=== PATIENT | female | born 1995 | race Caucasian/White ===

== ENCOUNTER 2017-10-09 15:31 | Emergency (ER) | payer OTHER ==
[~2017-10-09] VITALS: Ht 172.7 cm; Wt 66.0 kg
[2017-10-09 15:40] VITALS: Ht 172.7 cm; Wt 66.0 kg
[2017-10-09] MEDS ORDERED: FLV1 PO (16:22)
[2017-10-09] MEDS ORDERED: LEVE500T13 PO (16:22)
[2017-10-09] MEDS ORDERED: KPP/1000 PO (16:22)
--- NOTE | 2017-10-09 16:25 | DIAGNOSTIC IMAGING REPORT ---
CHEST 2 VIEWS ROUTINE CLINICAL HISTORY: 22 years-old Female presenting with cough for 2 weeks, chest pain. TECHNIQUE: PA and lateral views of the chest were obtained. COMPARISON: None. FINDINGS: Cardiomediastinal silhouette normal. Lungs and pleural spaces clear. Osseous structures normal. Upper abdomen normal. IMPRESSION: 1. No acute cardiopulmonary disease. Electronically signed by: Timothy Nath M.D. 10/09/2017 4:24 PM Dictated Date/Time: 10/09/2017 4:23 PM
--- NOTE | 2017-10-09 16:51 | EMERGENCY ROOM VISIT NOTE ---
ED Visit Note First contact with patient: 15:46 CHIEF COMPLAINT: Cough and bilateral rib pain HISTORY OF PRESENT ILLNESS: This 22-year-old female presents to the ER with chief complaint of cough and bilateral rib pain. The patient states that she has been coughing for about 1 week. She states the cough has been productive. The patient also admits to some head congestion but denies any ear pain, sore throat or fever. The patient denies any body aches. The patient states today after she was eating she got pain in both her lower ribs with increased pain with inspiration or movement. REVIEW OF SYSTEMS: 6 system review was performed and was negative unless stated otherwise in history of present illness. PMH: The patient is healthy; there is no significant medical or surgical history. SOCIAL HISTORY: Patient lives at home. The patient denies any tobacco use. PHYSICAL EXAM: Vital Signs were reviewed: Reviewed Nurse's notes and agree. Oxygen saturation is 97 % on room air which is normal . GENERAL: 22-year-old female appears in no acute distress. MENTAL STATUS: Alert, oriented, coherent. EARS: Canals clear. TMs good light reflex, no erythema or fluid level noted. NOSE: Nasal mucosa with moderate erythema engorgement. PHARYNX: No erythema, no edema noted. No exudate noted. Airway is adequate. NECK: Supple, non-tender. No lymphadenopathy noted. LUNGS: Clear to auscultation without wheezes rales or rhonchi. CARDIAC: Regular rate and rhythm without murmur. SKIN: No rashes noted. EMERGENCY DEPARTMENT COURSE: She was evaluated. Chest x-ray was ordered interpreted by the radiologist and myself. diagnostics:CHEST 2 VIEWS ROUTINE CLINICAL HISTORY: 22 years-old Female presenting with cough for 2 weeks, chest pain. TECHNIQUE: PA and lateral views of the chest were obtained. COMPARISON: None. FINDINGS: Cardiomediastinal silhouette normal. Lungs and pleural spaces clear. Osseous structures normal. Upper abdomen normal. IMPRESSION: 1. No acute cardiopulmonary disease. Electronically signed by: Timothy Nath M.D. 10/09/2017 4:24 PM The patient was informed of the findings. The patient was given a Ventolin HFA inhaler. The patient was discharged home in stable condition. DIAGNOSIS: Acute bronchitis DISCHARGE INSTRUCTIONS AND TREATMENT: Tylenol and/or ibuprofen as needed for fever and body aches. Uses the inhaler 2 puffs every 4 hours for 5 days and 2 puffs every 4 hours as needed for cough or chest tightness. If symptoms persist , follow-up with your family doctor for recheck. Current/Historical Medications Scheduled Folic Acid (Folic Acid), Unknown Dose PO DAILY Levetiracetam (Keppra), 1 TAB PO BID Levetiracetam (Keppra), 1 TAB PO BID Allergies Coded Allergies: No Known Allergies (Unverified , 10/09/17) Vital Signs Date Time Temp Pulse Resp B/P (MAP) Pulse Ox O2 Delivery O2 Flow Rate FiO2 10/09/17 15:40 36.6 87 20 112/80 97 Room Air Departure Information Referrals No Doctor, Assigned (PCP) Patient Instructions My [facility]
[2017-10-09 16:57] VITALS: BP 112/80; PULSE 87; TEMP 36.6; O2SAT 97
[2017-10-09] MEDS ORDERED: ALBUTEROL HFA 8 GM INHALER INH ONE (17:00)
== END 2017-10-09 16:58 | disposition home or self-care (01) ==
LOC: C.EDB 15:33 → C.EDD 16:58
DX: J20.9 Acute bronchitis, unspecified (principal)

== ENCOUNTER 2018-02-12 12:26 | Emergency (ER) | payer OTHER ==
[~2018-02-12] VITALS: Ht 172.7 cm; Wt 68.5 kg
[~2018-02-12 12:26] MED LIST: FLV1 PO; KPP/1000 PO; LEVE500T13 PO
[2018-02-12 12:33] VITALS: TEMP 36.3; Ht 172.7 cm; Wt 68.5 kg
[2018-02-12] MEDS ORDERED: SODIUM CHLORIDE 0.9% 500ML 500 ML IV STA (12:45)
[2018-02-12] MEDS ORDERED: ONDANSETRON INJ 2 MG/ML 2 ML VIAL IV STA (12:45)
[2018-02-12] MEDS ORDERED: MoRPHine SULFATE 4 MG/ML 1 ML CARP\\VIAL IV STA (12:45)
[2018-02-12] MEDS ORDERED: LEVE750T PO (13:05)
[2018-02-12] MEDS ORDERED: PANT40TA PO (13:05)
[2018-02-12 13:08] LABS: BASO % 1.1 %; BASO ABS # 0.06 K/uL (0-0.2); EOS % 2.2 %; EOS ABS # 0.12 K/uL (0-0.5); HEMATOCRIT 38.9 % (37-47); HEMOGLOBIN 12.9 g/dL (12.0-16.0); IG# 0.01 K/uL (0.00-0.02); LYMPH % 38.9 %; LYMPH ABS # 2.17 K/uL (1.2-3.4); MEAN CELL VOLUME 84.7 fL (80-100); MEAN CORPUSCULAR HEMOGLOBIN 28.1 pg (25-34); MEAN CORPUSCULAR HGB CONC 33.2 g/dl (32-36); MEAN PLATELET VOLUME 10.1 fL (7.4-10.4); MONO % 11.1 %; MONO ABS # 0.62 K/uL (0.11-0.59); NEUT % 46.5 %; PLATELET COUNT 307 K/uL (130-400); RED CELL DISTRIBUTION WIDTH CV 12.9 % (11.5-14.5); RED CELL DISTRIBUTION WIDTH SD 39.7 fL (36.4-46.3); WHITE BLOOD COUNT 5.58 K/uL (4.8-10.8)
[2018-02-12 13:17] LABS: PTT PATIENT 28.1 SECONDS (21.0-31.0)
[2018-02-12 13:26] LABS: CALCIUM 9.3 mg/dl (8.5-10.1); CREATININE 1.02 mg/dl (0.60-1.20); PHOSPHORUS 2.9 mg/dl (2.5-4.9); POTASSIUM 3.8 mmol/L (3.5-5.1)
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
--- NOTE | 2018-02-12 14:08 | DIAGNOSTIC IMAGING REPORT ---
CHEST ONE VIEW PORTABLE CLINICAL HISTORY: SEIZURE mental status change COMPARISON STUDY: 10/09/2017 FINDINGS: The bones soft tissues and hemidiaphragms are normal. The cardiomediastinal silhouette is normal. The lungs are clear. The pulmonary vasculature is normal. IMPRESSION: Negative chest. The above report was generated using voice recognition software. It may contain grammatical, syntax or spelling errors. Electronically signed by: Aniket Venegas M.D. 02/12/2018 2:07 PM Dictated Date/Time: 02/12/2018 2:07 PM
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
[2018-02-12] MEDS ORDERED: KETOROLAC TROMETHAMINE 30 MG/ML VIAL IV STA (14:39)
[2018-02-12 14:43] VITALS: BP 101/59; PULSE 68; O2SAT 98
== END 2018-02-12 14:44 | disposition home or self-care (01) ==
LOC: EDBD 12:26 → C.EDB 12:27
DX: S40.212A Abrasion of left shoulder, initial encounter (principal); R55 Syncope and collapse; V89.2XXA Person injured in unspecified motor-vehicle accident, traffic, initial encounter; G40.909 Epilepsy, unspecified, not intractable, without status epilepticus; Z83.3 Family history of diabetes mellitus; Z82.49 Family history of ischemic heart disease and other diseases of the circulatory system; Z79.899 Other long term (current) drug therapy